=== PATIENT | female | born 1950 | race Caucasian/White ===

== ENCOUNTER 2016-09-21 05:44 | Day surgery (SDC) | payer BC ==
[2016-09-14 15:55] LABS: BASOPHILS 0.5 %; BASOPHILS ABSOLUTE 0.03 10/3/uL (0.0-0.16); EOSINOPHILS 3.8 %; EOSINOPHILS ABSOLUTE 0.24 10/3/uL (0.0-0.53); HEMATOCRIT 38.6 % (36.0-48.0); HEMOGLOBIN 13.2 g/dL (12.0-16.0); IMMATURE GRANULOCYTES 0.2 %; IMMATURE GRANULOCYTES ABSOLUTE 0.01 10/3/uL (0.0-0.11); LYMPHOCYTES 32.9 %; LYMPHOCYTES ABSOLUTE 2.08 10/3/uL (0.67-4.30); MEAN CORPUS HGB CONC 34.2 g/dL (32.0-36.0); MEAN CORPUSCULAR HEMOGLOB 31.5 pg (26.0-34.0); MEAN CORPUSCULAR VOLUME 92.1 fL (80-100); MEAN PLATELET VOLUME 10.4 fL (9.2-13.0); MONOCYTES 7.6 %; MONOCYTES ABSOLUTE 0.48 10/3/uL (0.21-1.20); NEUTROPHILS ABSOLUTE 3.49 10/3/uL (2.02-8.40); PLATELET COUNT 295 10/3/uL (150-400); RBC DISTRIBUTION WIDTH 12.3 % (12.0-16.0); RED CELL COUNT 4.19 10/6/uL (4.0-5.6); WHITE BLOOD CELLS 6.3 10/3/uL (4.5-10.5)
[2016-09-14 16:06] LABS: BUN (BLOOD UREA NITROGEN) 20 MG/DL (6-23); CHLORIDE, SERUM 108 MMOL/L (96-112); CO2 (CARBON DIOXIDE) 32 MMOL/L (24-34); CREATININE 1.28 MG/DL (0.55-1.02); GFR AFRICAN AMERICAN 50 ML/MIN (>=60); GFR NON AFRICAN AMERICAN 43 ML/MIN (>=60); GLUCOSE, SERUM 138 MG/DL (60-99); POTASSIUM, SERUM 4.2 MMOL/L (3.5-5.3); SODIUM, SERUM 143 MMOL/L (135-148)
[2016-09-14 16:09] LABS: MANUAL DIFF NO %
[2016-09-14 16:12] LABS: PARTIAL THROMBO TIME 26.7 SEC (22.5-37.2)
[2016-09-14 17:07] LABS: ASCORBIC ACID (UR NOT ORDER) NEG (NEG); BILIRUBIN, URINE NEGATIVE (NEG); KETONE, URINE NEGATIVE (NEG); LEUKOCYTE ESTERASE(NOT OR TRACE (NEG); WBC (NOT ORDERED) (RFLEX) 2 (0-5)
--- NOTE | ~2016-09-21 | OP ---
Record Of Operation [facility] [address] [place]. [address] NAME: ALEX HESTER : 48 STATUS : [facility]#: [id number] AGE: 66 ADM/REG DATE : 09/21/16 MR#: [id number] REPORT SERV DATE: 09/27/16 DICTATED BY: JERMAIN MONAHAN DATE: 09/27/16 REPORT STATUS : Draft TRANSCRIBED BY: MODL DATE: 09/27/16 DATE OF PROCEDURE: 09/21/2016 PREOPERATIVE DIAGNOSIS: Pelvic mass. POSTOPERATIVE DIAGNOSIS: Pelvic mass. PROCEDURE: Robot-assisted laparoscopic bilateral salpingo-oophorectomy. CPT code 75883. ANESTHESIA: General. ESTIMATED BLOOD LOSS: 10 mL. CRYSTALLOID: 1200 mL. URINE OUTPUT: 150 mL. DRAINS: Gil. FINDINGS: Large mass emanating from the right adnexa, smooth-walled in appearance. The left adnexa also had ovarian cyst noted, but was otherwise benign in appearance. PATHOLOGY: Bilateral fallopian tubes and ovaries. COMPLICATIONS: None. POSTOPERATIVE PLAN: Extubated to PACU. PROCEDURE IN DETAIL: After informed consent was signed, the patient was taken to the operating room, and placed in dorsal supine position, where adequate general anesthesia was administered. She was then placed in dorsal lithotomy position in Pan stirrups, and prepped and draped in the usual fashion, and a Gil catheter was placed. Left upper quadrant incision was made with a scalpel and carried down to the fascia which was incised, muscles , posterior sheath was entered sharply, trocar was placed, and the abdomen was insufflated with CO2 gas. Additional robot trocars were placed in the supraumbilical region and bilateral upper quadrants, all under direct visualization. The patient was then placed in steep Trendelenburg, and the robot was docked in the usual fashion. Bilateral pelvic peritoneum was incised lateral and parallel to the infundibulopelvic ligaments. With the ureters identified, the infundibulopelvic ligaments were isolated, taken with bipolar cautery, transected with monopolar scissors, and the broad ligaments were taken up to the level of the uterine cornua. The utero-ovarian ligaments were then isolated, taken with bipolar cautery, transected with monopolar scissors, and the intervening broad ligaments were then taken with monopolar scissors. The large right adnexal mass was then placed into an EndoCatch bag, decompressed in the bag, and brought out through the warehouse administrative assistant port. This was done in a similar fashion to the left adnexa. The uterine cornual area was found to be hemostatic. All instruments were removed from the abdomen. The robot was undocked. The Record Of Operation [address] [place]. [address] NAME: ALEX HESTER : 48 STATUS : [facility] PAT#: [id number] AGE: 66 ADM/REG DATE : 09/21/16 MR#: [id number] REPORT SERV DATE: 09/27/16 DICTATED BY: JERMAIN MONAHAN DATE: 09/27/16 REPORT STATUS : Draft TRANSCRIBED BY: CHOLO DATE: 09/27/16 CO2 gas was evacuated. The fascia from the left upper quadrant incision was closed with 0 Vicryl suture, and the skin from all trocar sites was closed with 4-0 Monocryl and Dermabond. The patient tolerated the procedure well, was awakened, extubated, and sent to the PACU in stable condition. GIANNA/CHOLO Jermain Monahan MD / [id number] CC: MD REBECCA Barrios
[~2016-09-21 05:44] MED LIST: LOPID6 PO; OS500+D PO; OSTEO BI-FLEX1 EACH PO; TUMSROLL PO; XALAT OPH
== END 2016-09-21 14:24 | disposition home or self-care (01) ==
LOC: SDC 05:44
PROVIDERS: Obstetrics & Gynecology Gynecology
PROC: 0UT74ZZ Resection of Bilateral Fallopian Tubes, Percutaneous Endoscopic Approach (ICD-10-PCS; 2016-09-21)
PROC: 0UT24ZZ Resection of Bilateral Ovaries, Percutaneous Endoscopic Approach (ICD-10-PCS; principal; 2016-09-21 07:00)
DX: N83.202 Unspecified ovarian cyst, left side (principal); N83.201 Unspecified ovarian cyst, right side; Z88.8 Allergy status to other drugs, medicaments and biological substances; Z79.899 Other long term (current) drug therapy
CPT/HCPCS: 36415; 71020; 80048; 81001; 85025; 85610; 85730; 86850; 86900; 86901; 88112; 88305; 93005; A9270-GY; J0694; J1885; J2250; J2405; J2710; J2795; J3010